=== PATIENT | female | born 1945 | race Caucasian/White ===

== ENCOUNTER → 2016-07-03 | Outpatient (RCR) ==
[2014-08-27 12:40] VITALS: BMI 35.4
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
--- NOTE | 2016-07-03 11:29 | RS.OPPTDN ---
Subjective Date of Note: 07/03/16 Visit #: 2 Date of Evaluation: 06/28/16 Payer Source: MEDICARE Treatment Diagnosis: Neck pain Current Subjective/complaints:: Reports relief from the trigger point release in the R upper trap at last session.She has moderate pain currently. *Precautions: LATEX, Right hip replacement (anterior approach) approximately 1 year ago. Pain Assessment - Pain Description Pain Location: Right cervical and upper trap pain. Pain Description: Radiating Pain Description: radiates up to the occipital region. Current Pain Intensity: 4-5/10 - Treatment Modality: Electrical Stim Unattended Parameters/Method Applied: 20 mins. high volt to upper traps.,2 electrodes @ 95 - 110 pv. Patient Position: Sitting - Heat/Cryotherapy Treatment: Hot Pack (concurrent with e-stim) - Traction Treatment Method: Mechanical, Intermittent, Cervical Patient Position: Sitting Amount of Force Applied: 13# Hold Time: 30 secs. Rest Time: 5 secs. Duration of treatment: 10 mins. Traction Treatment Comment: Tolerates well. Interventions - Exercise/Activities/Manual Therapy Exercises/Activities: NA Total minutes of Exercise: 0 Manual Therapy: NA Total minutes of Manual Therapy: 0 - Charges Total Direct Minutes: 0 Total Treatment Time: 30 Procedures billed for this date of service:: hp,e-stim,traction Assessment: Patient reports relief after modalities and traction today,she is attentive to recommendations of beginning pain-free ROM for cervical care.She presents with forward head posture and can also benefit from postural training. Patient Education: Education of diagnosis, Body/Joint mechanics, Home Exercise Program, Home Safety, Activity Modification, Education of Plan of Care Short Term Goals Goal #1: Patient reports ability to sleep up to 4 hrs at a time. Goal to be met by: 07/20/16 Goal #2: CROM WFLs without increased pain. Goal to be met by: 07/20/16 Goal #3: Patient independent with basic HEP. Goal to be met by: 07/20/16 Goal #4: Driving causes only minimal pain. Goal to be met by: 07/20/16 Progress towards Goal:: Met [facility] Goals Goal #1: Independent in HEP. Goal to be met by: 08/10/16 Goal #2: Score on NDI scale improved to 10. Goal to be met by: 08/10/16 Goal #3: Cervical strength 4+/5 to improve neck stability. Goal to be met by: 08/10/16 Goal #4: Patient unawakened from neck pain. Goal to be met by: 08/10/16 Plan PLAN OF CARE EXPIRES ON:: 08/10/16 ORDER # VISITS AND/OR THROUGH DATE: 08/10/2016 PLAN: Continue Plan of Care
== END ==
PROVIDERS: ATTEND Nurse Practitioner Family
DX: M47.812 Spondylosis without myelopathy or radiculopathy, cervical region (principal)

== ENCOUNTER 2016-07-27 15:30 | Outpatient (RCR) ==
[2014-08-27 12:40] VITALS: BMI 35.4
--- NOTE | 2016-07-10 08:30 | RS.OPPTDN ---
Subjective Date of Note: 07/05/16 Visit #: 3 Date of Evaluation: 06/28/16 Payer Source: MEDICARE Treatment Diagnosis: Neck pain Current Subjective/complaints:: Reports relief for the majority of the day after Tues. session,some increased muscle tightness in the PM.Yesterday she had soreness ,but tolerable. *Precautions: LATEX, Right hip replacement (anterior approach) approximately 1 year ago. Pain Assessment - Pain Description Pain Location: Right cervical and upper trap pain. Pain Description: Dull, Aching Current Pain Intensity: minimal Other Comments regarding Pain:: The radiating pain into the occiput is lessening. - Treatment Modality: Electrical Stim Unattended Parameters/Method Applied: 20 mins. high volt to cervical/UT's,one channel(2 electrodes) @ 115 pv. Patient Position: Sitting - Heat/Cryotherapy Treatment: Hot Pack (concurrent with e-stim) Interventions - Exercise/Activities/Manual Therapy Exercises/Activities: HEP instruction of gentle cervical ROM including chin tucks,rotation to L and R,lateral flexion. Total minutes of Exercise: 0 Manual Therapy: 20 mins. deep tissue/trigger point mobs. to UT"s/cervical region Total minutes of Manual Therapy: 20 HOME EXERCISE PROGRAM: Chin tucks,cervical rotation,lateral flexion in PAIN FREE ROM.Recommended 2/3x/day as tolerated. - Charges Total Direct Minutes: 20 Total Treatment Time: 40 Procedures billed for this date of service:: hp,e-stim,manual therapy Assessment: Patient has moderate tone in R upper traps. today,does report relief after PT session today.Her cervical ROM is functional,with soreness at end ROM,especially with rotation /flexion to L.She is very attentive to recommendations for HEP and pain control. Patient Education: Education of diagnosis, Body/Joint mechanics, Home Exercise Program, Home Safety, Activity Modification, Education of Plan of Care Patient demonstrates compliance with HEP?: Yes Short Term Goals Goal #1: Patient reports ability to sleep up to 4 hrs at a time. Goal to be met by: 07/20/16 Progress towards Goal:: Progressing Goal #2: CROM WFLs without increased pain. Goal to be met by: 07/20/16 Progress towards Goal:: Progressing Goal #3: Patient independent with basic HEP. Goal to be met by: 07/20/16 Progress towards Goal:: Progressing Goal #4: Driving causes only minimal pain. 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 Goal to be met by: 08/10/16 Progress towards goal: Progressing Goal #2: Score on NDI scale improved to 10. Goal to be met by: 08/10/16 Goal #3: Cervical strength 4+/5 to improve neck stability. Goal to be met by: 08/10/16 Progress towards goal: No Change Goal #4: Patient unawakened from neck pain. Goal to be met by: 08/10/16 Plan PLAN OF CARE EXPIRES ON:: 08/10/16 ORDER # VISITS AND/OR THROUGH DATE: 08/10/2016 PLAN: Continue Plan of Care
--- NOTE | 2016-07-10 09:21 | RS.OPPTDN ---
Subjective Date of Note: 07/10/16 Visit #: 4 Date of Evaluation: 06/28/16 Payer Source: MEDICARE Treatment Diagnosis: Neck pain Current Subjective/complaints:: Patient reports relief for the day of last treatment ,but her pain worsened as the weekend progressed.She is very guarded today with her motion. *Precautions: LATEX, Right hip replacement (anterior approach) approximately 1 year ago. Pain Assessment - Pain Description Pain Location: Right cervical and upper trap pain. Pain Description: Tightness, Dull, Aching Pain Description: radiates up to the occipital region. Current Pain Intensity: 10/10 - Treatment Modality: Electrical Stim Unattended Parameters/Method Applied: 20 mins. high volt to cervical/UT's.Channel 1 @ 90 pv ,channel 2 @ 75 pv. - Heat/Cryotherapy Treatment: Hot Pack (concurrent with e-stim) - Traction Treatment Method: Mechanical, Intermittent, Cervical Patient Position: Supine Amount of Force Applied: 13# Hold Time: 30 secs. Rest Time: 5 secs. Duration of treatment: 15 mins. Traction Treatment Comment: Pain reduced to 3/10 after traction. Interventions - Exercise/Activities/Manual Therapy Exercises/Activities: HEP instruction of gentle cervical ROM including chin tucks,rotation to L and R,lateral flexion. Total minutes of Exercise: 0 Manual Therapy: NA Total minutes of Manual Therapy: 0 HOME EXERCISE PROGRAM: Chin tucks,cervical rotation,lateral flexion in PAIN FREE ROM.Recommended 2/3x/day as tolerated. - Charges Total Direct Minutes: 0 Total Treatment Time: 40 Procedures billed for this date of service:: hp,e-stim,traction Assessment: Patient reports significant relief after treatment session today.She is able to move her neck with less intense pain. Patient Education: Body/Joint mechanics, Home Exercise Program, Activity Modification, Education of Plan of Care Patient demonstrates compliance with HEP?: Yes Short Term Goals Goal #1: Patient reports ability to sleep up to 4 hrs at a time. Goal to be met by: 07/20/16 Progress towards Goal:: Progressing Goal #2: CROM WFLs without increased pain. Goal to be met by: 07/20/16 Progress towards Goal:: Progressing Goal #3: Patient independent with basic HEP. Goal to be met by: 07/20/16 Progress towards Goal:: Progressing Goal #4: Driving causes only minimal pain. 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 Goal to be met by: 08/10/16 Progress towards goal: Progressing Goal #2: Score on NDI scale improved to 10. Goal to be met by: 08/10/16 Goal #3: Cervical strength 4+/5 to improve neck stability. Goal to be met by: 08/10/16 Progress towards goal: No Change Goal #4: Patient unawakened from neck pain. Goal to be met by: 08/10/16 Plan PLAN OF CARE EXPIRES ON:: 08/10/16 ORDER # VISITS AND/OR THROUGH DATE: 08/10/2016 PLAN: Progress Exercises
--- NOTE | 2016-07-12 16:55 | RS.OPPTDN ---
Subjective Date of Note: 07/12/16 Visit #: 5 Date of Evaluation: 06/28/16 Payer Source: MEDICARE Treatment Diagnosis: Neck pain Current Subjective/complaints:: Reports feeling better after resuming traction the last session. *Precautions: LATEX, Right hip replacement (anterior approach) approximately 1 year ago. Pain Assessment - Pain Description Pain Location: Right cervical and upper trap pain. Pain Description: Tightness, Dull, Aching Current Pain Intensity: 4/10 - Treatment Modality: Electrical Stim Unattended Parameters/Method Applied: 20 mins.,one channel @ 90pv to R UT/medial border of scapula. Patient Position: Sitting - Heat/Cryotherapy Treatment: Hot Pack (concurrent with e-stim) - Traction Treatment Method: Mechanical, Intermittent, Cervical Patient Position: Supine Amount of Force Applied: 13# Hold Time: 30 secs. Rest Time: 5 secs. Duration of treatment: 20 mins. Traction Treatment Comment: Tolerates well. Interventions - Exercise/Activities/Manual Therapy Exercises/Activities: HEP review of gentle cervical ROM including chin tucks, rotation to L and R,lateral flexion.Postural awareness education and ergonomics review. Total minutes of Exercise: 0 Manual Therapy: NA Total minutes of Manual Therapy: 0 HOME EXERCISE PROGRAM: Chin tucks,cervical rotation,lateral flexion in PAIN FREE ROM.Recommended 2/3x/day as tolerated. - Charges Total Direct Minutes: 0 Total Treatment Time: 40 Procedures billed for this date of service:: hp,e-stim,traction Assessment: Patient responds well to traction with relief reported today.She has good understanding of HEP.She is steam drier tender to palpate the R upper traps, but this is improving. Patient Education: Education of diagnosis, Body/Joint mechanics, Home Exercise Program, Home Safety, Activity Modification, Education of Plan of Care Patient demonstrates compliance with HEP?: Yes Short Term Goals Goal #1: Patient reports ability to sleep up to 4 hrs at a time. Goal to be met by: 07/20/16 Progress towards Goal:: Progressing Goal #2: CROM WFLs without increased pain. Goal to be met by: 07/20/16 Progress towards Goal:: Progressing Goal #3: Patient independent with basic HEP. Goal to be met by: 07/20/16 Progress towards Goal:: Progressing Goal #4: Driving causes only minimal pain. Goal to be met by: 07/20/16 Progress towards Goal:: Partially Met [facility] Goals Goal #1: Independent in HEP. Goal to be met by: 08/10/16 Progress towards goal: Progressing Goal #2: Score on NDI scale improved to 10. Goal to be met by: 08/10/16 Goal #3: Cervical strength 4+/5 to improve neck stability. Goal to be met by: 08/10/16 Goal #4: Patient unawakened from neck pain. Goal to be met by: 08/10/16 Plan PLAN OF CARE EXPIRES ON:: 08/10/16 ORDER # VISITS AND/OR THROUGH DATE: 08/10/2016 PLAN: Progress Exercises
--- NOTE | 2016-07-16 16:38 | RS.OPPTDN ---
Subjective Date of Note: 07/16/16 Visit #: 6 Date of Evaluation: 06/28/16 Payer Source: MEDICARE Treatment Diagnosis: Neck pain Current Subjective/complaints:: Patient reports hurting more today as the day has been busy for her. *Precautions: LATEX, Right hip replacement (anterior approach) approximately 1 year ago. Pain Assessment - Pain Description Pain Location: Right cervical and upper trap pain. Pain Description: Tightness, Dull, Aching Pain Description: radiates up to the occipital region. Current Pain Intensity: 7/10 Other Comments regarding Pain:: Pain was 4/10 earlier today. - Treatment Modality: Electrical Stim Unattended Parameters/Method Applied: 20 mins. high volt to R upper traps,one channel @ 80 pv. Patient Position: Sitting - Heat/Cryotherapy Treatment: Hot Pack (concurrent with e-stim) Interventions - Exercise/Activities/Manual Therapy Exercises/Activities: Passive cervical stretches all directions in conjunction doing occipital release and accupressure techniques to the R muscle belly of upper trap. Total minutes of Exercise: 20 Manual Therapy: NA Total minutes of Manual Therapy: 0 HOME EXERCISE PROGRAM: Chin tucks,cervical rotation,lateral flexion in PAIN FREE ROM.Recommended 2/3x/day as tolerated. - Charges Total Direct Minutes: 20 Total Treatment Time: 40 Procedures billed for this date of service:: hp,e-stim,ex 1 Assessment: Patient has very sensitive trigger point in the R upper trap today, but reports relief after accupressure applied.She has functional cervical ROM , reports stretch discomfort with ROM ,but no sharp pain in the neck. Patient Education: Education of diagnosis, Body/Joint mechanics, Home Exercise Program, Home Safety, Activity Modification, Education of Plan of Care Patient demonstrates compliance with HEP?: Yes Short Term Goals Goal #1: Patient reports ability to sleep up to 4 hrs at a time. Goal to be met by: 07/20/16 Progress towards Goal:: Progressing Goal #2: CROM WFLs without increased pain. Goal to be met by: 07/20/16 Progress towards Goal:: Progressing Goal #3: Patient independent with basic HEP. Goal to be met by: 07/20/16 Progress towards Goal:: Progressing Goal #4: Driving causes only minimal pain. 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 Goal to be met by: 08/10/16 Progress towards goal: Progressing Goal #2: Score on NDI scale improved to 10. Goal to be met by: 08/10/16 Goal #3: Cervical strength 4+/5 to improve neck stability. Goal to be met by: 08/10/16 Goal #4: Patient unawakened from neck pain. Goal to be met by: 08/10/16 Progress towards goal: Progressing Plan PLAN OF CARE EXPIRES ON:: 08/10/16 ORDER # VISITS AND/OR THROUGH DATE: 08/10/2016 PLAN: Continue Plan of Care
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
--- NOTE | 2016-07-24 16:39 | RS.OPPTDN ---
Subjective Date of Note: 07/24/16 Visit #: 8 Date of Evaluation: 06/28/16 Treatment Diagnosis: Neck pain Current Subjective/complaints:: Patient reports her therapy case is to be billed through ,as opposed to Medicare.She reports increased neck pain over the weekend,feels the last session exercises was too much. *Precautions: LATEX, Right hip replacement (anterior approach) approximately 1 year ago. Pain Assessment - Pain Description Pain Location: Right cervical and upper trap pain. Pain Description: Tightness, Dull, Aching Pain Description: radiates up to the occipital region. Current Pain Intensity: 5 - Treatment Modality: Electrical Stim Unattended Parameters/Method Applied: 20 mins. @ 85 pv ,one channel to R upper traps. Patient Position: Sitting - Heat/Cryotherapy Treatment: Hot Pack (concurrent with e-stim) Interventions - Exercise/Activities/Manual Therapy Exercises/Activities: 20 mins. gentle cervical ROm and manual distraction , multiple reps. for 10 sec. hold 5 sec rest.HEP review. Total minutes of Exercise: 20 Manual Therapy: NA Total minutes of Manual Therapy: 0 HOME EXERCISE PROGRAM: Chin tucks,cervical rotation,lateral flexion in PAIN FREE ROM.Recommended 2/3x/day as tolerated. - Charges Total Direct Minutes: 20 Total Treatment Time: 40 Procedures billed for this date of service:: hp,e-stim,ex 1 Assessment: Patient's level of pain has increased the past couple of days , lesser today.Her pain continues to vary with amount of daily activity.She continues to be tender to palpate the muscle belly of the R upper trap. Patient Education: Education of diagnosis, Body/Joint mechanics, Home Exercise Program, Home Safety, Activity Modification, Education of Plan of Care Patient demonstrates compliance with HEP?: Yes Short Term Goals Goal #1: Patient reports ability to sleep up to 4 hrs at a time. Goal to be met by: 07/20/16 Progress towards Goal:: Progressing Goal #2: CROM WFLs without increased pain. Goal to be met by: 07/20/16 Progress towards Goal:: Regressing Goal #3: Patient independent with basic HEP. Goal to be met by: 07/20/16 Progress towards Goal:: Partially Met Goal #4: Driving causes only minimal pain. 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 Goal to be met by: 08/10/16 Progress towards goal: Progressing Goal #2: Score on NDI scale improved to 10. Goal to be met by: 08/10/16 Goal #3: Cervical strength 4+/5 to improve neck stability. Goal to be met by: 08/10/16 Progress towards goal: Progressing Goal #4: Patient unawakened from neck pain. Goal to be met by: 08/10/16 Progress towards goal: Progressing Plan PLAN OF CARE EXPIRES ON:: 08/10/16 ORDER # VISITS AND/OR THROUGH DATE: 08/10/2016 PLAN: Continue Plan of Care
--- NOTE | 2016-07-27 16:39 | RS.OPPTDN ---
Subjective Date of Note: 07/27/16 Visit #: 9 Date of Evaluation: 06/28/16 Payer Source: MEDICARE Treatment Diagnosis: Neck pain Current Subjective/complaints:: Reports tolerating the last session better, feels she has more relief from the manual traction ,as opposed to stretches with rotation. *Precautions: LATEX, Right hip replacement (anterior approach) approximately 1 year ago. Pain Assessment - Pain Description Pain Location: Right cervical and upper trap pain. Pain Description: Dull, Aching Current Pain Intensity: 2 - Heat/Cryotherapy Treatment: Hot Pack (20 mins. prior to manual therapy) Interventions - Exercise/Activities/Manual Therapy Exercises/Activities: NA Manual Therapy: 20 mins. occipital release ,chin tucks,gentl manual distraction to C-spine. HOME EXERCISE PROGRAM: Chin tucks,cervical rotation,lateral flexion in PAIN FREE ROM.Recommended 2/3x/day as tolerated. - Charges Total Direct Minutes: 20 Total Treatment Time: 40 Procedures billed for this date of service:: hp,manual therapy 1 Assessment: Patient reports motion to L is improved,but rotation to R elicits pain today.Her sleep is still frequently interrupted due to neck pain .She is guarded with cervical motions that are combined,such as lateral flexion / rotation. Patient Education: Education of diagnosis, Body/Joint mechanics, Home Exercise Program, Home Safety, Activity Modification, Education of Plan of Care Patient demonstrates compliance with HEP?: Yes Short Term Goals Goal #1: Patient reports ability to sleep up to 4 hrs at a time. Goal to be met by: 07/20/16 (awakes several times during the night) Progress towards Goal:: No Change Goal #2: CROM WFLs without increased pain. Goal to be met by: 07/20/16 Progress towards Goal:: No Change Goal #3: Patient independent with basic HEP. Goal to be met by: 07/20/16 Progress towards Goal:: Partially Met Goal #4: Driving causes only minimal pain. Goal to be met by: 07/20/16 Progress towards Goal:: Partially Met Penitentiary Goals Goal #1: Independent in HEP. Goal to be met by: 08/10/16 Progress towards goal: Progressing Goal #2: Score on NDI scale improved to 10. Goal to be met by: 08/10/16 Goal #3: Cervical strength 4+/5 to improve neck stability. Goal to be met by: 08/10/16 Progress towards goal: Partially Met Goal #4: Patient unawakened from neck pain. Goal to be met by: 08/10/16 Progress towards goal: No Change Plan PLAN OF CARE EXPIRES ON:: 08/10/16 ORDER # VISITS AND/OR THROUGH DATE: 08/10/2016 PLAN: Continue Plan of Care
== END 2016-07-31 ==
PROVIDERS: ATTEND Nurse Practitioner Family
DX: M47.812 Spondylosis without myelopathy or radiculopathy, cervical region (principal)

== ENCOUNTER 2016-08-09 15:26 | Outpatient (RCR) ==
[2014-08-27 12:40] VITALS: BMI 35.4
--- NOTE | 2016-08-09 16:37 | RS.OPPTDC ---
Date of Discharge: 08/09/16 Date of Evaluation: 06/28/16 Number of Visits: 10 Treatment Diagnosis: Neck pain Current Level of Function: Independent in community with varied levels of cervical pain. Pain Assessment - Pain Description Pain Location: Right cervical and upper trap pain. Pain Description: radiates up to the occipital region. Current Pain Intensity: not rated today Other Comments regarding Pain:: elevated pain the last couple of days. Functional Outcome Measure Neck Disability Index: 38 - G Codes & Severity Modifier G Codes & Modifier: NA Source of G Code score: NA Observation - Observation Posture: Forward Head, Rounded Shoulders General Range of Motion: WFL Muscle Strength: 4+/5 - Heat/Cryotherapy Treatment: Hot Pack (20 mis. prior to manual therapy) Interventions - Exercise/Activities/Manual Therapy Exercises/Activities: HEP review while on moist heat. Total minutes of Exercise: 0 Manual Therapy: 20 mins. occipital release ,chin tucks,gentl manual distraction to C-spine. Total minutes of Manual Therapy: 20 HOME EXERCISE PROGRAM: Chin tucks,cervical rotation,lateral flexion in PAIN FREE ROM.Recommended 2/3x/day as tolerated. - Charges Total Direct Minutes: 20 Total Treatment Time: 40 Procedures billed for this date of service:: hp,manual therapy Assessment Assessment: Patient has met rehab potential,no significant relief from PT sessions.She does have better awareness of posture and body mechanics.She agrees with D/C plan today.Sheplans to purchase TENS to assist with cervical pain. Patient Education: Body/Joint mechanics, Home Exercise Program, Home Safety, Activity Modification, Education of Plan of Care Rehab Potential: Fair Short Term Goals Goal #1: Patient reports ability to sleep up to 4 hrs at a time. Goal to be met by: 07/20/16 (awakes several times during the night) Progress towards Goal:: No Change Goal #2: CROM WFLs without increased pain. Goal to be met by: 07/20/16 Progress towards Goal:: No Change Goal #3: Patient independent with basic HEP. Goal to be met by: 07/20/16 Progress towards Goal:: Partially Met Goal #4: Driving causes only minimal pain. Goal to be met by: 07/20/16 Progress towards Goal:: Partially Met Hi Teacher Goals Goal #1: Independent in HEP. Goal to be met by: 08/10/16 Progress towards goal: Partially Met Goal #2: Score on NDI scale improved to 10. Goal to be met by: 08/10/16 (38 same as eval) Progress towards goal: No Change Goal #3: Cervical strength 4+/5 to improve neck stability. Goal to be met by: 08/10/16 Progress towards goal: Partially Met Goal #4: Patient unawakened from neck pain. Goal to be met by: 08/10/16 Progress towards goal: No Change Plan Reason for Discharge:: Maximum Potential Met
== END 2016-08-31 ==
PROVIDERS: ATTEND Nurse Practitioner Family
DX: M47.812 Spondylosis without myelopathy or radiculopathy, cervical region (principal)

== ENCOUNTER 2016-09-10 10:13 | Outpatient (CLI) ==
[2014-08-27 12:40] VITALS: BMI 35.4
--- NOTE | 2016-09-10 11:41 | DI ---
EXAM: Chest two views HISTORY: Cough COMPARISON: 08/27/2014 TECHNIQUE: Two views of the chest were performed FINDINGS: There is lower airway bronchial wall thickening. There is no focal airspace consolidatio n. There is no pleural effusion or pneumothorax. The heart is normal in size. The mediastinal cont our is unchanged, noting atherosclerosis. Mild chronic compression deformity is suggested in the upp er lumbar spine, unchanged. Scoliosis. There is no acute abnormality of the bones. IMPRESSION: Lower airway thickening may represent reactive airways disease or bronchiolitis. No fo donna airspace consolidation.
== END 2016-09-10 10:14 | disposition home or self-care (01) ==
LOC: RAD 10:13
PROVIDERS: ATTEND Family Medicine
DX: R05 Cough (principal)

== ENCOUNTER 2016-11-20 07:47 | Outpatient (CLI) | payer OTHER ==
[2014-08-27 12:40] VITALS: BMI 35.4
[2016-11-20 08:25] VITALS: BP 124/75; TEMP 98
[2016-11-20] MEDS ORDERED: PROLIA SUBCUT STA (08:25)
== END 2016-11-20 07:48 | disposition home or self-care (01) ==
LOC: OPMED 07:47
PROVIDERS: ATTEND Family Medicine
DX: M81.0 Age-related osteoporosis without current pathological fracture (principal)
CPT/HCPCS: 96372

== ENCOUNTER 2016-12-11 08:02 | Outpatient (CLI) ==
[2016-12-11 14:49] VITALS: BMI 37.2
== END 2016-12-11 08:03 | disposition home or self-care (01) ==
LOC: DIETCN 08:02
PROVIDERS: ATTEND Family Medicine
DX: E11.65 Type 2 diabetes mellitus with hyperglycemia (principal)

== ENCOUNTER 2017-05-28 07:55 | Outpatient (CLI) | payer OTHER ==
[2017-05-28 08:15] VITALS: BP 125/76; TEMP 98.7
[2017-05-28] MEDS: PROLIA SUBCUT STA (08:18)
== END 2017-05-28 07:56 | disposition home or self-care (01) ==
LOC: OPMED 07:55
PROVIDERS: ATTEND Family Medicine
DX: M81.0 Age-related osteoporosis without current pathological fracture (principal)
CPT/HCPCS: 96372

== ENCOUNTER 2017-06-04 08:47 | Outpatient (CLI) ==
--- NOTE | 2017-06-04 09:36 | DEXA ---
EXAM: Bone density HISTORY: Osteoporosis on calcium and vitamin D supplementation with history of steroid use in a post menopausal female COMPARISON: DEXA 06/20/2015 TECHNIQUE: Digital images of the thoracolumbar spine were provided and calculation of bone density w as obtained. FINDINGS: Digital images demonstrate no compression deformities of the thoracolumbar spine. DEXA scan of the lumbar spine is of good quality with a leftward curvature. The total BMD equals 1.233 grams per square centimeter. (Prior 1.147) T-score is 0.1 with a Z-score of 1.1. IMPRESSION: Bone density of the lumbar spine demonstrate normal bone density by WHO criteria. There has been mild interval improvement in bone density. T score greater than -1 is normal T score -1 to -2.5 is osteopenia T score less than - 2.5 is osteoporosis
== END 2017-06-04 08:48 | disposition home or self-care (01) ==
LOC: RAD 08:47
PROVIDERS: ATTEND Family Medicine
DX: M81.0 Age-related osteoporosis without current pathological fracture (principal)

== ENCOUNTER 2017-07-02 15:00 | Outpatient (RCR) | payer OTHER ==
--- NOTE | 2017-06-21 12:03 | RS.OPPTEV2 ---
Date of Note: 06/20/17 Visit #: 1 Date of Evaluation: 06/20/17 Payer Source: MEDICARE Surgery Performed?: No Treatment Diagnosis: trochanteric bursitis R hip, greater trochanteric bursitis L hip History of Condition/Mechanism of Injury:: pt reports pain began april and has been affecting sleep and having R hip weakness and "drops" when she walks. Prior Level of Function.....Patient was independent with: ADL's, Self Care, Work /Vocation, Caregiving, Ambulation/Mobility, Community Integration/Access Functional Limitations: Sleep, Standing, Ambulation, Community Access/ Integration Current Subjective/complaints:: pt states she is having increasing pain in B hips with R worse than L. pt reports that the R hip has been having sharp pain and weakness. 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 R THR 11/05/2011, (has had 3 sx due to infections) Smoking Status: Former smoker Hx Home Medications: glipizide, metformin, lisinopril, advair, proair, calcium and vit D, hydrocodone, prolia Patient's Goals: have less pain in B hips. Pain Assessment - Pain Description Pain Location: R hip Pain Description: Sharp Current Pain Intensity: 8/10 Worst Pain Intensity: 10/10 Other Comments regarding Pain:: L hip pain: 0 at rest hurts mostly when sleeping Functional Outcome Measure LE Functional Scale: 22 (72%) - G Codes & Severity Modifier G Codes & Modifier: mobility current CL. mobility goal CJ Source of G Code score: LE functional index Observation - Observation Posture: Forward Head, Rounded Shoulders, Increased Thoracic Kyphosis Handedness: Right Gait - Gait Pattern General Gait Pattern Observation: Antalgic Gait, Crouched Gait, Short Stance Time (R) Gait Comments: pt amb with cane independently with antalgic gait, decreased stance time on R, flexed posture, pt with one episode of "dropping of R hip" during stance. General Range of Motion: BUE WFL's. BLE WFL's with pain in B hips with ROM Muscle Strength: BUE 5/5, Hip ROM: Right WFL's - Left Hip ROM Left Hip ROM Limitations: Soft Tissue Tightness, Pain, Muscle Weakness Comments: L hip ROM WFL's with pain with flex, abd - Right Hip ROM Right Hip ROM Limitations: Soft Tissue Tightness, Pain, Muscle Weakness Comments: R hip ROM WFL's with pain with flex and abd. - Left Hip Strength Left Hip Flexion: 4+ Good + Left Hip Extension: 4 Good Left Hip Abduction: 4 Good Comments: pain with muscle testing - Right Hip Strength Right Hip Flexion: 4 Good Right Hip Extension: 4 Good Right Hip Abduction: 4 Good Right Hip External Rotation: 4- Good- Right Hip Internal Rotation: 4- Good- - Special Test Maeve Test: Negative Left, Positive Right Palpation Palpation Findings: Tenderness, Muscle Guarding Comments:: pin point tenderness over B greater trochanter also with BLE hamstring tightness, and piriformis tightness. Sensation - Sensation Right Upper Extremity: Intact/Normal Left Upper Extremity: Intact/Normal Right Lower Extremity: Intact/Normal Left Lower Extremity: Intact/Normal Balance - Sitting Balance Static Sitting Balance: Normal Dynamic Sitting Balance: Normal - Standing Balance Static Standing Balance: Good Dynamic Standing Balance: Good - Comments Balance Assessment Comments: pt with no LOB during amb. - Heat/Cryotherapy Treatment: Cryotherapy Comments:: R hip with patient lying on L side Interventions - Exercise/Activities/Manual Therapy Exercises/Activities: pt received BLE hamstring stretches, IT band standing stretch, ball squeeze, GS, hip abd/add with green tband in hooklying. Manual Therapy: n/a HOME EXERCISE PROGRAM: pt received written HEP including hamstring stretches, standing IT band stretch, ball squeeze, GS, hip abd with green tband in hooklying - Charges Timed Code Treatment Minutes: 50 Total Treatment Time: 60 Procedures billed for this date of service:: eval med cold pack Assessment Assessment: pt presents with pain with ROM, weight bearing, and palpation to B hips R worse than L. pt with weakness in B hips with antalgic gait. Feel pt would benefit from skilled PT for therex for LE strengthening, stretching to decrease muscle tightness, modalities to decrease pain. Patient Education: Education of diagnosis, Home Exercise Program, Education of Plan of Care Rehab Potential: Good Short Term Goals Goal #1: pt report pain R hip <7/10 with activity Goal to be met by: 07/11/17 Goal #2: pt demonstrates consistent pelvic alignment with amb in dept. Goal to be met by: 07/11/17 Information Systems Operator Goals Goal #1: pt with improved BLE strength 4 to 4+/5 and independent with HEP Goal to be met by: 08/01/17 Goal #2: pt report pain R hip < 5/10 with activity Goal to be met by: 08/01/17 (38 same as eval) Goal #3: Improved hamstring tightness with BLE equal Goal to be met by: 08/01/17 Goal #4: LE functional scale score improved to >45/80 Goal to be met by: 08/01/17 Plan - Treatment to be Provided Procedures: Therapeutic Exercises, Therapeutic Activity, Gait Training, Manual Therapy, Massage, Patient Education Modalities: Electrical Stimulation, Class IV Laser, Cryotherapy, Hot Packs - Treatment Plan Frequency: 2 X week Duration: 6 weeks ORDER # VISITS AND/OR THROUGH DATE: 08/01/17 - Treatment Code (1) Trochanteric bursitis, right hip Code(s): M70.61 - TROCHANTERIC BURSITIS, RIGHT HIP Comments: M70.61 (2) Greater trochanteric bursitis of left hip Code(s): M70.62 - TROCHANTERIC BURSITIS, LEFT HIP Comments: M70.62 (3) Hip pain Code(s): M25.559 - PAIN IN UNSPECIFIED HIP Qualifiers: Laterality: bilateral Qualified Code(s): M25.551 - Pain in right hip; M25.552 - Pain in left hip; M25.552 - Pain in left hip
--- NOTE | 2017-06-25 15:48 | RS.CXNS ---
Date of scheduled appointment: 06/25/17 Type: Cancel Reason for Cancel/NS: Patient hurting, MD advised patient to cancel treatment.
--- NOTE | 2017-06-27 10:58 | RS.CXNS ---
Date of scheduled appointment: 06/27/17 Type: Cancel Reason for Cancel/NS: Patient still hurting. She contacted her MD and he will follow up with her tomorrow 06/28/17 and will decide if she can return to PT or D /c.
--- NOTE | 2017-07-03 09:27 | RS.OPPTDN ---
Subjective Date of Note: 07/02/17 Visit #: 2 Date of Evaluation: 06/20/17 Payer Source: MEDICARE Treatment Diagnosis: trochanteric bursitis R hip, greater trochanteric bursitis L hip Current Subjective/complaints:: Patient requests to have a more gentle treatment based on being more sore after her eval. Kenna says she is using ice to both hips with pain reduction following. She says she saw her ortho last week and received another injection, but by him to both hips. She reports improvement from this injection, but not the initial one due to it being placed in the wrong area. She returns to Dr. Srivastava in 3-4 weeks. 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 She performs gentle hip strengthening of: pillow squeezes, isometric hip flexion, and abd 2x10 each. QS x 10. Reviewed HEP and encouraged her to continue to use ice for pain as it does improve her symptoms rather than heat. Total minutes of Exercise: 25 Manual Therapy: n/a HOME EXERCISE PROGRAM: pt received written HEP including hamstring stretches, standing IT band stretch, ball squeeze, GS, hip abd with green tband in hooklying - Charges Timed Code Treatment Minutes: 25 Total Treatment Time: 30 Procedures billed for this date of service:: ex2 Assessment: Patient has had elevated pain since eval. She was told initial injection was performed to an incorrect site, thus ortho provided a second injection last week in which she has found relief. She is to receive gentler exercise program with stretching and general hip strengthening, then may progress as pain decreases. All activity performed today taylor well and without c /o. Patient Education: Education of diagnosis, Body/Joint mechanics, Home Exercise Program, Home Safety, Education of Plan of Care Patient demonstrates compliance with HEP?: Yes Short Term Goals Goal #1: pt report pain R hip <7/10 with activity Goal to be met by: 07/11/17 Progress towards Goal:: Progressing Goal #2: pt demonstrates consistent pelvic alignment with amb in dept. Goal to be met by: 07/11/17 Goal #3: Patient independent with basic HEP. Goal to be met by: 07/20/16 Progress towards Goal:: Partially Met Goal #4: Driving causes only minimal pain. 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
== END 2017-07-03 ==
PROVIDERS: ATTEND Orthopaedic Surgery
DX: M70.62 Trochanteric bursitis, left hip (principal); M70.61 Trochanteric bursitis, right hip

== ENCOUNTER 2017-07-30 15:00 | Outpatient (RCR) | payer OTHER ==
--- NOTE | 2017-07-04 16:06 | RS.OPPTDN ---
Subjective Date of Note: 07/04/17 Visit #: 3 Date of Evaluation: 06/20/17 Payer Source: MEDICARE Treatment Diagnosis: trochanteric bursitis R hip, greater trochanteric bursitis L hip Current Subjective/complaints:: Patient says she only had slight soreness to the R knee, but not to the hip from last session. Reports she is performing HEP. 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 She performs gentle hip strengthening of: pillow squeezes, isometric hip flexion, and abd 2x10 each. QS and glut sests 2 x 10. Reviewed HEP and encouraged her to continue to use ice for pain as it does improve her symptoms rather than heat. Total minutes of Exercise: 30 Manual Therapy: n/a HOME EXERCISE PROGRAM: pt received written HEP including hamstring stretches, standing IT band stretch, ball squeeze, GS, hip abd with green tband in hooklying - Charges Timed Code Treatment Minutes: 30 Total Treatment Time: 30 Procedures billed for this date of service:: ex2 Assessment: Patient taylor all gentle therex well. She only had experienced slight soreness to the R knee after last session. She continues to use ice at home and performing HEP consistently. Patient Education: Education of diagnosis, Body/Joint mechanics, Home Exercise Program Patient demonstrates compliance with HEP?: Yes Short Term Goals Goal #1: pt report pain R hip <7/10 with activity Goal to be met by: 07/11/17 Progress towards Goal:: Progressing Goal #2: pt demonstrates consistent pelvic alignment with amb in dept. Goal to be met by: 07/11/17 Goal #3: . Goal #4: . 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
--- NOTE | 2017-07-09 15:50 | RS.OPPTDN ---
Subjective Date of Note: 07/09/17 Visit #: 4 Date of Evaluation: 06/20/17 Payer Source: MEDICARE Treatment Diagnosis: trochanteric bursitis R hip, greater trochanteric bursitis L hip Current Subjective/complaints:: Patient says she has forgotten to perform HEP over the weekend and can tell that she needs to perform them more often. Says she will try to get better at it. Reports she feels better when she leaves therapy. 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 She performs gentle hip strengthening of: ball squeezes, isometric hip flexion, and abd 2x10 each. QS and glut sests 2 x 10. Began SAQ 1 06/04# ea and latex free red tband for DF 2x10. Reviewed HEP and encouraged her to continue to use ice for pain as it does improve her symptoms rather than heat. Total minutes of Exercise: 34 Manual Therapy: n/a HOME EXERCISE PROGRAM: pt received written HEP including hamstring stretches, standing IT band stretch, ball squeeze, GS, hip abd with green tband in hooklying - Charges Timed Code Treatment Minutes: 34 Total Treatment Time: 34 Procedures billed for this date of service:: ex2 Assessment: Patient with increased soreness and stiffness today she feels related to forgetting to perform HEP consistently. She expresses improved symptoms when leaving today especially after stretching today. Patient Education: Education of diagnosis, Home Exercise Program Short Term Goals Goal #1: pt report pain R hip <7/10 with activity Goal to be met by: 07/11/17 Progress towards Goal:: Progressing Goal #2: pt demonstrates consistent pelvic alignment with amb in dept. Goal to be met by: 07/11/17 Goal #3: . Goal #4: . 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
--- NOTE | 2017-07-16 16:39 | RS.OPPTDN ---
Subjective Date of Note: 07/16/17 Visit #: 6 Date of Evaluation: 06/20/17 Payer Source: MEDICARE Treatment Diagnosis: trochanteric bursitis R hip, greater trochanteric bursitis L hip Current Subjective/complaints:: Patient says that she has had decreased pain to both hips. She says she went to her MD yesterday and he has released her. 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 She performs hip strengthening of: ball squeezes, isometric hip flexion, and abd 2x10 each. QS and glut sets 2 x 10. SAQ 1 1/2# ea and latex free green tband for DF 2x10. Hooklying hip abd with green latex free 2x10, alternate LE lift with 1 1/2# each , began bridge 2x5. Total minutes of Exercise: 38 Manual Therapy: n/a HOME EXERCISE PROGRAM: pt received written HEP including hamstring stretches, standing IT band stretch, ball squeeze, GS, hip abd with green tband in hooklying - Charges Timed Code Treatment Minutes: 38 Total Treatment Time: 38 Procedures billed for this date of service:: ex3 Assessment: Patient has been released from her MD. She is only to attend appt if her pain worsens. She is responding to all therex well showing improved hamstring flexibility and hip strengthening. No discomfort or difficulty taylor bridging. Patient Education: Education of diagnosis, Body/Joint mechanics, Home Exercise Program Patient demonstrates compliance with HEP?: Yes Short Term Goals Goal #1: pt report pain R hip <7/10 with activity Goal to be met by: 07/11/17 Progress towards Goal:: Met Goal #2: pt demonstrates consistent pelvic alignment with amb in dept. Goal to be met by: 07/11/17 Progress towards Goal:: Progressing Goal #3: . Goal #4: . Residential Goals Goal #1: pt with improved BLE strength 4 to 4+/5 and independent with HEP Goal to be met by: 08/01/17 Progress towards goal: Progressing Goal #2: pt report pain R hip < 5/10 with activity Goal to be met by: 08/01/17 (38 same as eval) Progress towards goal: Progressing Goal #3: Improved hamstring tightness with BLE equal Goal to be met by: 08/01/17 Progress towards goal: Progressing Goal #4: LE functional scale score improved to >45/80 Goal to be met by: 08/01/17 Progress towards goal: Progressing Plan PLAN OF CARE EXPIRES ON:: 08/01/17 ORDER # VISITS AND/OR THROUGH DATE: 08/01/17 PLAN: Patient to continue x 1-2 more weeks to progress hip strength
--- NOTE | 2017-07-17 08:38 | RS.OPPTDN ---
Subjective Date of Note: 07/12/17 Visit #: 5 Date of Evaluation: 06/20/17 Payer Source: MEDICARE Treatment Diagnosis: trochanteric bursitis R hip, greater trochanteric bursitis L hip Current Subjective/complaints:: Patient says her pain has been only mild to the R hip mostly. Says she is working on HEP and exercises are not bothering her like they did initially. *Precautions: LATEX ALLERGY Pain Assessment - Pain Description Pain Location: mild soreness at both hips, R more than L Interventions - Exercise/Activities/Manual Therapy Exercises/Activities: Patient receives passive gentle stretching of HS, SKTC, heel cords, and short range lower trunk rotation x 3 bilaterally. She performs gentle hip strengthening of: ball squeezes, isometric hip flexion, and abd 2x10 each. Alt LE lift with 1 1/2# ea x 10. QS and glut sests 2 x 10. SAQ 1 1 /2# ea and latex free green tband for DF and ham curls 2x10. Reviewed HEP and postural mechanics. Total minutes of Exercise: 35 Manual Therapy: n/a HOME EXERCISE PROGRAM: pt received written HEP including hamstring stretches, standing IT band stretch, ball squeeze, GS, hip abd with green tband in hooklying - Charges Timed Code Treatment Minutes: 35 Total Treatment Time: 35 Procedures billed for this date of service:: ex2 Patient Education: Body/Joint mechanics, Home Exercise Program Patient demonstrates compliance with HEP?: Yes Short Term Goals Goal #1: pt report pain R hip <7/10 with activity Goal to be met by: 07/11/17 Progress towards Goal:: Progressing Goal #2: pt demonstrates consistent pelvic alignment with amb in dept. Goal to be met by: 07/11/17 Progress towards Goal:: Progressing Goal #3: . Goal #4: . [facility] Goals Goal #1: pt with improved BLE strength 4 to 4+/5 and independent with HEP Goal to be met by: 08/01/17 Progress towards goal: Progressing Goal #2: pt report pain R hip < 5/10 with activity Goal to be met by: 08/01/17 (38 same as eval) Progress towards goal: Progressing Goal #3: Improved hamstring tightness with BLE equal Goal to be met by: 08/01/17 Progress towards goal: Progressing Goal #4: LE functional scale score improved to >45/80 Goal to be met by: 08/01/17 Plan PLAN OF CARE EXPIRES ON:: 08/01/17 ORDER # VISITS AND/OR THROUGH DATE: 08/01/17 PLAN: Patient to continue for progressing of hip strengthening.
--- NOTE | 2017-07-18 15:10 | RS.CXNS ---
Date of scheduled appointment: 07/18/17 Type: Cancel Reason for Cancel/NS: Patient calls to cancel due to bilateral hip pain.
--- NOTE | 2017-07-23 16:05 | RS.OPPTDN ---
Subjective Date of Note: 07/23/17 Visit #: 7 Date of Evaluation: 06/20/17 Payer Source: MEDICARE Treatment Diagnosis: trochanteric bursitis R hip, greater trochanteric bursitis L hip Current Subjective/complaints:: Patient reports having severe pain to the R hip after her last appt. She feels it may be related to the weather change and/or new weighted exercises (however, the only new exercise that was performed was bridging x 5 reps). Patient says she used ice all weekend and rested from HEP. She says the main time her pain is present is with walking and she feels her R hip may buckle. *Precautions: LATEX ALLERGY Pain Assessment - Pain Description Pain Location: Moderate pain to the L hip (posteriorally and fdc down to the knee) Interventions - Exercise/Activities/Manual Therapy Exercises/Activities: Patient receives passive gentle stretching of HS, SKTC not exceeding 90 degrees, heel cords, and short range lower trunk rotation x 3 bilaterally. She performs hip strengthening of: ball squeezes, isometric hip flexion, and abd 2x10 each. Alt LE lift with 1 1/2# ea x 10. QS and glut sets 2 x 10. SAQ 1 1/2# ea and latex free green tband for DF and ham curls, hooklying hip abd 2x10. Avoided bridging today. Reviewed HEP and postural mechanics. Encouraged her to continue to use ice for pain control. Total minutes of Exercise: 38 Manual Therapy: n/a HOME EXERCISE PROGRAM: pt received written HEP including hamstring stretches, standing IT band stretch, ball squeeze, GS, hip abd with green tband in hooklying - Charges Timed Code Treatment Minutes: 38 Total Treatment Time: 38 Procedures billed for this date of service:: ex3 Assessment: Patient has had reduced pain since she had cancelled her appt last week. She is able to taylor all routine stretching and trunk/hip exercises without c/o's, while avoiding bridging to see if that is the exercise that could have caused her flare up. Patient Education: Body/Joint mechanics, Home Exercise Program, Education of Plan of Care Short Term Goals Goal #1: pt report pain R hip <7/10 with activity Goal to be met by: 07/11/17 Progress towards Goal:: Progressing Goal #2: pt demonstrates consistent pelvic alignment with amb in dept. Goal to be met by: 07/11/17 Progress towards Goal:: Progressing Goal #3: . Goal #4: . [facility] Goals Goal #1: pt with improved BLE strength 4 to 4+/5 and independent with HEP Goal to be met by: 08/01/17 Progress towards goal: Progressing Goal #2: pt report pain R hip < 5/10 with activity Goal to be met by: 08/01/17 (38 same as eval) Progress towards goal: Progressing Goal #3: Improved hamstring tightness with BLE equal Goal to be met by: 08/01/17 Progress towards goal: Progressing Goal #4: LE functional scale score improved to >45/80 Goal to be met by: 08/01/17 Plan PLAN OF CARE EXPIRES ON:: 08/01/17 ORDER # VISITS AND/OR THROUGH DATE: 08/01/17 PLAN: Patient to continue for progression of therex x 3 more sessions by 08/01/17
--- NOTE | 2017-07-26 11:16 | RS.OPPTDN ---
Subjective Date of Note: 07/26/17 Visit #: 8 Date of Evaluation: 06/20/17 Payer Source: MEDICARE Treatment Diagnosis: trochanteric bursitis R hip, greater trochanteric bursitis L hip Current Subjective/complaints:: Patient says her hip pain is not as bad today ( regarding the L). She says she has been working on HEP and trying not to overdo it with housework. *Precautions: LATEX ALLERGY Interventions - Exercise/Activities/Manual Therapy Exercises/Activities: Patient receives passive gentle stretching of HS, SKTC not exceeding 90 degrees, heel cords, and short range lower trunk rotation x 3 bilaterally. She performs hip strengthening of: ball squeezes, isometric hip flexion, and abd 2x10 each. Alt LE lift with 1 1/2# ea x 10. QS and glut sets 2 x 10. SAQ 1 1/2# ea and latex free green tband for DF and ham curls, hooklying hip abd 2x10. Avoided bridging again today. Reviewed HEP and postural mechanics. Total minutes of Exercise: 33 Manual Therapy: n/a HOME EXERCISE PROGRAM: pt received written HEP including hamstring stretches, standing IT band stretch, ball squeeze, GS, hip abd with green tband in hooklying - Charges Timed Code Treatment Minutes: 33 Total Treatment Time: 33 Procedures billed for this date of service:: ex2 Assessment: Patient has had less hip pain in the past few days. She is conscientious of body mechanics and avoiding heavy lifting and particular exercises that may increase her pain. Unable to progress exercises this week related to patient wanting to stay conservative and avoid heavier/new exercises. Patient Education: Education of diagnosis, Body/Joint mechanics, Home Exercise Program Patient demonstrates compliance with HEP?: Yes Short Term Goals Goal #1: pt report pain R hip <7/10 with activity Goal to be met by: 07/11/17 Progress towards Goal:: Progressing Goal #2: pt demonstrates consistent pelvic alignment with amb in dept. Goal to be met by: 07/11/17 Progress towards Goal:: Progressing Goal #3: . Goal #4: . [facility] Goals Goal #1: pt with improved BLE strength 4 to 4+/5 and independent with HEP Goal to be met by: 08/01/17 Progress towards goal: Progressing Goal #2: pt report pain R hip < 5/10 with activity Goal to be met by: 08/01/17 (38 same as eval) Progress towards goal: Progressing Goal #3: Improved hamstring tightness with BLE equal Goal to be met by: 08/01/17 Progress towards goal: Progressing Goal #4: LE functional scale score improved to >45/80 Goal to be met by: 08/01/17 Plan PLAN OF CARE EXPIRES ON:: 08/01/17 ORDER # VISITS AND/OR THROUGH DATE: 08/01/17 PLAN: Patient to continue one more week per order to attempt to advance hip strengthening, then d/c with HEP.
--- NOTE | 2017-07-30 16:22 | RS.OPPTDN ---
Subjective Date of Note: 07/30/17 Visit #: 9 Date of Evaluation: 06/20/17 Payer Source: MEDICARE Treatment Diagnosis: trochanteric bursitis R hip, greater trochanteric bursitis L hip Current Subjective/complaints:: Patient says her pain has been better than over the weekend. She says her hip does not "go out" near as often, but still does sporadically. Patient says she can see improved flexiblity and strength. *Precautions: LATEX ALLERGY Pain Assessment - Pain Description Pain Location: R hip pain 5/10 with moderate palpation and with intermittent WB , L none at present Interventions - Exercise/Activities/Manual Therapy Exercises/Activities: Patient receives passive gentle stretching of HS, SKTC not exceeding 90 degrees, heel cords, and short range lower trunk rotation x 3 bilaterally. She performs hip strengthening of: ball squeezes, isometric hip flexion, and abd 2x10 each. Alt LE lift with 1 1/2# ea x 10. QS and glut sets 2 x 10. SAQ 1 1/2# ea and latex free green tband for DF and ham curls, hooklying hip abd 2x10. Reviewed goals and progress. Inquired on LE Functional Index tasks related to verbal improvements. Total minutes of Exercise: 35 Manual Therapy: n/a HOME EXERCISE PROGRAM: pt received written HEP including hamstring stretches, standing IT band stretch, ball squeeze, GS, hip abd with green tband in hooklying - Charges Timed Code Treatment Minutes: 35 Total Treatment Time: 35 Procedures billed for this date of service:: ex2 Assessment: Patient has voiced improvement with treatment and has improved with LE Functional Index. She is to attend one more session per order and then discharge with progressed HEP. Patient Education: Body/Joint mechanics, Home Exercise Program, Education of Plan of Care Patient demonstrates compliance with HEP?: Yes Short Term Goals Goal #1: pt report pain R hip <7/10 with activity Goal to be met by: 07/11/17 Progress towards Goal:: Met Goal #2: pt demonstrates consistent pelvic alignment with amb in dept. Goal to be met by: 07/11/17 Progress towards Goal:: Met Goal #3: . Goal #4: . [facility] Goals Goal #1: pt with improved BLE strength 4 to 4+/5 and independent with HEP Goal to be met by: 08/01/17 Progress towards goal: Met Goal #2: pt report pain R hip < 5/10 with activity Goal to be met by: 08/01/17 Progress towards goal: Met Goal #3: Improved hamstring tightness with BLE equal Goal to be met by: 08/01/17 Progress towards goal: Met Goal #4: LE functional scale score improved to >45/80 Goal to be met by: 08/01/17 Plan PLAN OF CARE EXPIRES ON:: 08/01/17 ORDER # VISITS AND/OR THROUGH DATE: 08/01/17 PLAN: Patient to continue x 1 more session then prepare for discharge
== END 2017-07-31 ==
PROVIDERS: ATTEND Orthopaedic Surgery
DX: M70.62 Trochanteric bursitis, left hip (principal); M70.61 Trochanteric bursitis, right hip

== ENCOUNTER 2017-08-01 15:12 | Outpatient (RCR) ==
--- NOTE | 2017-08-02 11:04 | RS.OPPTDN ---
Subjective Date of Note: 08/01/17 Visit #: 10 Date of Evaluation: 06/20/17 Payer Source: MEDICARE Treatment Diagnosis: trochanteric bursitis R hip, greater trochanteric bursitis L hip Current Subjective/complaints:: Patient says her pain has been less in the past few days. Reports she has sat more today at work, so her pain is low. She continues to work on HEP. She says she is pleased with the strength and mobility she has acquired. Patient uses ice at home consistently for pain control. *Precautions: LATEX ALLERGY Pain Assessment - Pain Description Pain Location: R hip is mild at this time, L no pain Interventions - Exercise/Activities/Manual Therapy Exercises/Activities: Patient receives continued passive gentle stretching of HS , SKTC not exceeding 90 degrees, heel cords, and short range lower trunk rotation x 3 bilaterally. She performs hip strengthening of: ball squeezes, isometric hip flexion, and abd 2x10 each. Alt LE lift with 1 1/2# ea x 10. QS and glut sets 2 x 10. SAQ 1 1/2# ea and latex free green tband for DF and ham curls, hooklying hip abd 2x10 with green latex free tband. Reviewed goals and progress. Patient completes LE Functional Index. Total minutes of Exercise: 38 Manual Therapy: n/a HOME EXERCISE PROGRAM: pt received written HEP including hamstring stretches, standing IT band stretch, ball squeeze, GS, hip abd with green tband in hooklying - Objective Findings Observations,measurements,etc.: LE Functional Index: 33/80 (NOW) or 59% impairment. 22/80 (EVAL) or 72% impairment - Charges Timed Code Treatment Minutes: 38 Total Treatment Time: 38 Procedures billed for this date of service:: ex3 Assessment: Patient has improved per subjective reports of strength, taylor to activties in dept/home, amb distance before pain is present/worsens, and flexibility. 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 She understands and agrees to continue to progress HEP and use cryotherapy for pain control at work/home. Patient Education: Body/Joint mechanics, Home Exercise Program, Education of Plan of Care Patient demonstrates compliance with HEP?: Yes Short Term Goals Goal #1: pt report pain R hip <7/10 with activity Goal to be met by: 07/11/17 Progress towards Goal:: Met Goal #2: pt demonstrates consistent pelvic alignment with amb in dept. Goal to be met by: 07/11/17 Progress towards Goal:: Met Goal #3: . Goal #4: . [facility] Goals Goal #1: pt with improved BLE strength 4 to 4+/5 and independent with HEP Goal to be met by: 08/01/17 Progress towards goal: Met Goal #2: pt report pain R hip < 5/10 with activity Goal to be met by: 08/01/17 Progress towards goal: Met Goal #3: Improved hamstring tightness with BLE equal Goal to be met by: 08/01/17 Progress towards goal: Met Goal #4: LE functional scale score improved to >45/80 Goal to be met by: 08/01/17 Progress towards goal: Progressing Plan PLAN OF CARE EXPIRES ON:: 08/01/17 ORDER # VISITS AND/OR THROUGH DATE: 08/01/17 PLAN: Discharge
--- NOTE | 2017-08-07 10:14 | RS.OPPTDC ---
Date of Discharge: 08/01/17 Date of Evaluation: 06/20/17 Number of Visits: 10 Treatment Diagnosis: trochanteric bursitis R hip, greater trochanteric bursitis L hip Current Level of Function: pt with increased strength B hips and knees to 4+/5 LLE, 4/5 to RLE. pt with improved hamstring length BLE compared to eval. Pain report has decreased B hips. Current Complaints/Gains: pt reports decreased pain with amb as well as routinely performing cryotherapy and HEP. pt states she has had much improvement with getting in/out bathtub/car, but continues to have some difficulty with stairs. Pain Assessment - Pain Description Pain Location: B hip Current Pain Intensity: improved from eval Functional Outcome Measure LE Functional Scale: 33 (improved from 22 on eval) - G Codes & Severity Modifier G Codes & Modifier: mobility dc CK. mobility goal CJ Source of G Code score: LE functional scale Observation - Observation Posture: Forward Head, Rounded Shoulders, Increased Thoracic Kyphosis Gait - Gait Pattern General Gait Pattern Observation: Antalgic Gait Gait Comments: pt continues with slight antalgic gait however much improved from eval not having to use rwx. General Range of Motion: WFL's Muscle Strength: LLE hip/knee 4+/5, RLE hip/knee 4/5 Interventions - Exercise/Activities/Manual Therapy Exercises/Activities: n/a Manual Therapy: n/a HOME EXERCISE PROGRAM: pt received written HEP including hamstring stretches, standing IT band stretch, ball squeeze, GS, hip abd with green tband in hooklying - Charges Timed Code Treatment Minutes: n/a Total Treatment Time: n/a Procedures billed for this date of service:: n/a Assessment Assessment: pt has shown much improvement with decreased pain in hip as well as increased strength, as well as improvement with transfers, and gait. pt has met all STG and all LTG except #4 LE functional index did improve however did not meet goal. Patient Education: Home Exercise Program, Education of Plan of Care Rehab Potential: Good Short Term Goals Goal #1: pt report pain R hip <7/10 with activity Goal to be met by: 07/11/17 Progress towards Goal:: Met Goal #2: pt demonstrates consistent pelvic alignment with amb in dept. Goal to be met by: 07/11/17 Progress towards Goal:: Met Goal #3: . 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
== END 2017-08-31 ==
PROVIDERS: ATTEND Orthopaedic Surgery
DX: M70.61 Trochanteric bursitis, right hip (principal); M70.62 Trochanteric bursitis, left hip

== ENCOUNTER 2017-12-24 08:07 | Outpatient (CLI) ==
[2017-12-24] MEDS ORDERED: PROLIA SUBCUT STA (08:20)
[2017-12-24 08:24] VITALS: BP 132/79; TEMP 98
== END 2017-12-24 08:08 | disposition home or self-care (01) ==
LOC: OPMED 08:07
PROVIDERS: ATTEND Family Medicine
DX: M81.0 Age-related osteoporosis without current pathological fracture (principal)
CPT/HCPCS: 96372

== ENCOUNTER 2018-06-26 07:54 | Outpatient (CLI) | payer OTHER ==
[2018-06-26] MEDS ORDERED: PROLIA SUBCUT STA (08:03)
[2018-06-26 08:05] VITALS: BP 142/72; TEMP 97.2
--- NOTE | 2018-06-26 12:52 | CT ---
EXAM: CT chest without contrast HISTORY: Smoker COMPARISON: None TECHNIQUE: CT chest performed without intravenous contrast. Coronal and sagittal reformatted images obtained. FINDINGS: Thyroid and thoracic inlet appear normal. Heart normal in size. No pericardial effusion. Aorta normal in caliber. Mild atherosclerosis. Esophagus unremarkable. Evaluation for lymphadeno micheal limited without contrast. No lymphadenopathy identified in the chest. There are gallstones. No acute abnormalities of the bones. Degenerative change in the spine. Mild to moderate rightward c urvature thoracic spine. Mild chronic compression deformity L2. Central airway patent. No airspace consolidation. No pleural effusion. No pneumothorax. 2 mm pulmonary nodule right lung image 23. Mild emphysema. IMPRESSION: 1. No acute cardiopulmonary process. 2. 2 mm pulmonary nodule right lung. Consider CT chest follow-up in 12 months to ensure stability. 3. Mild emphysema. 4. Cholelithiasis.
--- NOTE | 2018-07-02 10:53 | MAMMO ---
EXAM: Digital screening mammogram with tomosynthesis HISTORY: Screening COMPARISON: 05/29/2017 FINDINGS: Digital MLO and CC views of the right and left breast were performed. Tomosynthesis was performed. Computer aided detection utilized. There are scattered fibroglandular densities. Benign bilateral calcifications. There is no evidence for mass, asymmetry, distortion, or suspicious calci fications in either breast. IMPRESSION: 1. No evidence of malignancy in the right or left breast. 2. Annual screening mammogram is recommended in one year. BIRADS category 2, benign
== END 2018-06-26 07:55 | disposition home or self-care (01) ==
LOC: OPMED 07:54
PROVIDERS: ATTEND Family Medicine
DX: Z12.31 Encounter for screening mammogram for malignant neoplasm of breast (principal); M81.0 Age-related osteoporosis without current pathological fracture; Z87.891 Personal history of nicotine dependence
CPT/HCPCS: 96372